=== PATIENT | female | born 1980 | race Caucasian/White ===

== ENCOUNTER 2023-12-03 10:18 | Outpatient (CLI) | payer OTHER, SELFPAY ==
[2023-12-03 10:33] LABS: Basophils # 0.1 K/mm3 (0-0.2); Basophils % 1.3 % (0.1-2.0); Eosinophils # 0.1 K/mm3 (0.0-0.4); Eosinophils % 2.1 % (0.1-12.0); Hematocrit 45.4 % (37.0-47.0); Hemoglobin 14.7 g/dL (12.2-16.2); Lymphocytes # 1.7 K/mm3 (0.7-4.5); Lymphocytes % 24.3 % (10-50); Mean Corpuscular HGB Conc 32.3 g/dL (31.8-35.4); Mean Corpuscular Hemoglobin 29.5 pg (27.0-31.2); Mean Corpuscular Volume 91.4 fl (81-99); Mean Platelet Volume 7.7 fl (7.4-10.4); Monocytes # 0.3 K/mm3 (0.1-1.0); Monocytes % 3.7 % (1.7-9.3); Neutrophils # 4.7 K/mm3 (1.8-7.8); Neutrophils % 68.6 % (37.0-80.0); Platelet Count 314 K/mm3 (142-424); Red Blood Count 4.97 M/mm3 (4.20-5.40); Red Cell Distribution Width 13.8 % (11.5-17.5); White Blood Count 6.9 K/mm3 (4.8-10.8)
[2023-12-03 11:10] LABS: Chloride 103 mmol/L (98-107); Potassium 4.6 mmoL/L (3.5-5.1); Sodium 137 mmol/L (136-145)
[2023-12-03 11:13] LABS: Anion Gap 7.6 mEq/L (5-15); Blood Urea Nitrogen 12 mg/dl (7-17); Calcium 8.8 mg/dl (8.4-10.2); Carbon Dioxide 31 mmol/L (22.0-30.0); Estimated Glomerular Filt Rate 78 ml/min (>60); GFR (African American) 94 ML/MIN (>60); Glucose 95 mg/dl (74-100)
== END 2023-12-03 23:59 ==
LOC: LAB 10:20
PROVIDERS: PCP Surgery; Visit Provider Surgery
DX: D24.2 Benign neoplasm of left breast (principal)
CPT/HCPCS: 36415; 80048; 85025

== ENCOUNTER 2023-12-09 09:31 | Day surgery (SDC) | payer OTHER, SELFPAY ==
[2023-12-08 11:29] VITALS: BMI 24.9
[2023-12-09] VITALS (10 sets, daily range): BP systolic 124–173; BP diastolic 87–108; PULSE 73–98; RESP 12–19; TEMP 36.1–36.5; O2SAT 93–100
[2023-12-09] MEDS: LACTATED RINGERS 1000ML 1,000 ML 25 ML IV (09:55)
--- NOTE | 2023-12-09 10:06 | P.PNANES_ITS ---
[facility] Disclaimer: The information contained in this section may have been updated after the patient was seen, as this information can be updated by other users. Medical History Asthma Hypertension Surgical History History of colonoscopy History of hysterectomy History of sinus surgery Family History Other Family history of COPD (chronic obstructive pulmonary disease) Family history of hypertension Social History Smoking Status: Never smoker alcohol intake: never substance use type: denies use current occupational status: employed Travel in the last 8 weeks: None [facility] Anesthesia Checklist Patient Identification Patient Identification: Arm Band, Family and Verbal (Name & ) Structural Data Admitted From: Home Planned Operative Procedure/s: Excision of LEFT breast mass Consent for Planned Operative Procedure(s) Verified: Yes Verified Documents: Surgical Consent and History and Physical NPO Status Verified Time NPO: 19:00 Chart Verification Results Verified: CBC and BMP Additional verifications Patient : No Anesthesia Reactions: No Hx Blood Transfusions: No Blood Transfusion Reaction: No Cardiovascular Assessment Heart Sounds: S1 & S2 Pulse Rhythm: Irregular Peripheral Edema: No Airway Assessment Mallampati Score:: Class I C-Spine Mobility Assessed: Yes (FROM) TMJ Mobility Assessed: Yes Dentition: Good Dentition (Nothing loose per pt.) Neurological Assessment Level of Consciousness: Awake, Alert, Appropriate and Follows Commands Hx Seizures: No Numbness or tingling in extremities: No Anesthesia Plan Anesthesia Risk discussed: Yes Anesthesia Plan: Verified ASA Class: II Anesthesia Type: General
[2023-12-09] MEDS: CEFAZOLIN SODIUM 1 GM in 0.9 % SODIUM CHLORIDE 50 ML IV (10:31)
[2023-12-09] MEDS: LIDOCAINE 1% 20ML MDV 20 ML (10:56)
--- NOTE | 2023-12-09 11:35 | EXP.OP.NOTE ---
Date of procedure: 12/09/23 Pre-op Diagnosis:: Left breast mass Post-op Diagnosis:: Same Procedure performed:: Excision of left lateral breast mass Surgeon:: Eric Pearson MD ENVIRONMENTAL HEALTH SPECIALIST:: Hector Mock Anesthesia: LMA Estimated blood loss (mL): 25 Operative findings:: Palpable lesion excised Operative note:: After informed consent was obtained the patient was taken to the operating room and placed in the supine position. General anesthesia was induced and her left breast was prepped and draped in a sterile fashion. After infiltration with local anesthetic a slightly curvilinear incision was made over the palpable left lateral breast mass. The deep subcutaneous tissue was dissected with electrocautery. The palpable lesion was carefully elevated. The lesion was excised in toto and passed off for pathologic evaluation after being marked for margin. The superficial and deep margins were marked with non-dyed suture (short superficial/long deep). The superior and lateral margins were marked with dyed suture (short superior/long lateral). Electrocautery was utilized to achieve hemostasis. The wound was thoroughly irrigated. Metallic clips were placed along the wound base/margin. The deep subcutaneous tissue was reapproximated with interrupted Vicryl. Skin was then closed with running 4-0 Monocryl in a subcuticular fashion. Steri-Strips were applied. The patient's anesthetic agents were reversed and she was transferred to recovery in stable condition. Condition: stable Disposition: PACU Complications:: No immediate
--- NOTE | 2023-12-09 11:45 | EXP.ANES.I ---
[facility] Anesthesia Record Part I Anesthesia Record I Intake, IV Amount: 500 Hydration: Adequate Estimated blood loss (mL): 25 Urine output (mL): 0 Blood Pressure: 173/99 SaO2: 99 Pulse Rate: 98 Airway Patency: Patent Respiratory Rate: 12 Temperature: 97 F Patient is:: Drowsy and Oral/Nasal airway Stable to PACU at:: 11:41
[2023-12-09] MEDS: LABETALOL 20MG/4ML SYRINGE 20 MG IV (11:46)
--- NOTE | 2023-12-09 11:50 | SUR.PHASEI ---
Sahil Mock [employer] OPERATIONS INTELLIGENCE CHIEF aware of BP. labetalol 5mg via IV ordered and given by Genny Wyatt RN
--- NOTE | 2023-12-11 11:47 | EXP.ANES.II ---
[facility] Anesthesia Record Part II Anesthesia Record Part II Discharge Time: 12:11 Destination: Surgical Day Care (OP Surgery) PACU nurse assessment reviewed?: Yes Patient Condition:: Good Anesthesia Complications:: None Swallowing reflex intact?: Yes Airway Patency: Patent Cyanosis?: No Blood Pressure: 150/93 SaO2: 9 Respiratory Rate: 17 Pulse Rate: 91 Temperature: 97.7 F Mental Status: Alert & Oriented Pain level:: 0 Nausea and/or vomitting:: None Intake, IV Amount: 0 Hydration: Adequate
[2023-12-11 11:48] VITALS: BP 150/93; PULSE 91; RESP 17; TEMP 36.5; O2SAT 9
== END 2023-12-09 12:51 | disposition home or self-care (01) ==
PROVIDERS: PCP Surgery; Visit Provider Surgery
PROC: (CPT 19120; principal; 2023-12-09 11:00)
DX: N64.89 Other specified disorders of breast (principal); N60.22 Fibroadenosis of left breast
CPT/HCPCS: 19120; 96374; J2405

== ENCOUNTER 2024-11-14 15:17 | Outpatient (CLI) | payer OTHER, SELFPAY ==
--- NOTE | 2024-11-14 15:25 | XR_ITS ---
FINAL REPORT CLINICAL HISTORY: shoulder pain x3 months FINDINGS: Two views show no evidence of acute displaced fracture or dislocation of the visualized bony architecture. The joint spaces appear normal. IMPRESSION: Unremarkable exam. Reviewed, Interpreted and Dictated by Anotny Dean MD Transcribed by Miriam Farooq Authenticated and [facility]
== END 2024-11-14 23:59 | disposition home or self-care (01) ==
LOC: RAD 15:20
PROVIDERS: Visit Provider Physician Assistant Surgical
DX: M25.512 Pain in left shoulder (principal)
CPT/HCPCS: 73030